=== PATIENT | male | born 1975 | race Caucasian/White ===

== ENCOUNTER 2023-09-07 17:04 | Emergency (ER) | payer BC ==
[~2023-09-07] VITALS: Ht 162.6 cm; Wt 66.7 kg
[2023-09-07 17:07] VITALS: BP 134/87; PULSE 77; RESP 18; TEMP 98.3; O2SAT 98
[2023-09-07 17:31] VITALS: O2SAT 99
[2023-09-07] MEDS ORDERED: metFORMIN 500 MG TAB PO SCH (18:10)
[2023-09-07] MEDS ORDERED: DIVALPROEX 500 MG TABEC PO ONE (18:10)
[2023-09-07] MEDS ORDERED: LORazepam 1 MG TAB PO ONE (18:10)
[2023-09-07 18:15] LABS: APPEARANCE,URINE CLEAR (CLEAR); BILIRUBIN,URINE NEGATIVE (NEGATIVE); BLOOD, URINE NEGATIVE (NEGATIVE); COLOR,URINE YELLOW (YELLOW); LEUKOCYTE ESTERASE ,URINE NEGATIVE (NEGATIVE); NITRITE, URINE NEGATIVE (NEGATIVE); PROTEIN,URINE NEGATIVE (NEGATIVE); UGLUCOSE NEGATIVE (NEGATIVE); UROBILINOGEN,URINE 0.2 EU/dL (0.2 - 1)
[2023-09-07 18:25] LABS: AMPHETAMINE, URINE NEGATIVE ng/ml (NEG <=1000); BARBITURATE, URINE NEGATIVE ng/ml (NEG <=200); BENZODIAZEPINE, URINE NEGATIVE ng/mL (NEG <=200); CANNABINOID, URINE NEGATIVE ng/mL (NEG <=50); COCAINE, URINE NEGATIVE ng/mL (NEG <=300); OPIATE, URINE NEGATIVE ng/mL (NEG <=2000); PHENCYCLIDINE SCREEN,URINE NEGATIVE ng/mL (NEG <=25)
[2023-09-07 18:32] LABS: BASOPHILS % (AUTO) 0.5 % (0.0-2.0); EOSINOPHILS # (AUTO) 0.1 K/uL (0-0.4); EOSINOPHILS % (AUTO) 1.8 % (0.0-4.0); HEMATOCRIT 41.9 % (36-52); LYMPHOCYTES # (AUTO) 2.3 K/uL (2.0-11.5); MEAN CORPUSCULAR HEMOGLOBIN 33 pg (27-31); MEAN CORPUSCULAR HGB CONC 34 g/dL (33-37); MEAN CORPUSCULAR VOLUME 97.7 fL (80-94); MONOCYTES # (AUTO) 0.6 K/uL (0.8-1.0); MONOCYTES % (AUTO) 9.2 % (1.7-9.3); NEUTROPHILS # (AUTO) 3.3 K/uL (1.8-7.7); NEUTROPHILS % (AUTO) 52.5 % (42.2-75.2); PLATELET COUNT (AUTO) 228 K/uL (140-450); RED BLOOD CELL COUNT(AUTO) 4.28 MIL/uL (4.20-6.10); RED CELL DISTRIBUTION WIDTH 17.9 % (11.6-13.7); WHITE BLOOD COUNT (AUTO) 6.4 K/uL (4.8-10.8)
[2023-09-07 18:44] LABS: ANION GAP 7.8 (8-16); CALCIUM 8.5 mg/dL (8.5-10.1); CARBON DIOXIDE 30.7 mmol/L (21-32); CREATININE 0.7 mg/dL (0.6-1.3); POTASSIUM 3.5 mmol/L (3.5-5.1)
[2023-09-07 18:49] LABS: SALICYLATE < 2.8 mg/dL (2.8-20.0)
[2023-09-07 18:50] LABS: ACETAMINOPHEN < 0.5 ug/ml (10-30); ALCOHOL, BLOOD < 3 mg/dL (<10)
[2023-09-07 19:46] VITALS: O2SAT 99
[2023-09-07] MEDS ORDERED: OLANZapine 5 MG ODT SL ONE (20:10)
[2023-09-07] MEDS ORDERED: OLANZapine 5 MG TAB ONE (22:06)
[2023-09-07] MEDS ORDERED: LORazepam 2 MG/ML VIAL IM ONE (22:40)
[2023-09-07] MEDS ORDERED: HALOPERIDOL IM 5 MG/ML VIAL IM ONE (22:40)
[2023-09-08] VITALS (8 sets, daily range): BP systolic 110; BP diastolic 61; PULSE 87; RESP 16; TEMP 98.3; O2SAT 99–100
== END 2023-09-08 18:33 ==
LOC: MED 17:04
DX: F23 Brief psychotic disorder (principal); Z20.822 Contact with and (suspected) exposure to COVID-19; R45.1 Restlessness and agitation
CPT/HCPCS: 36415; 70450; 80048; 80305; 81003; 82948; 85025; 87426; 96372; 99285; G0480; G0482; J1630; J2060

== ENCOUNTER 2024-05-16 21:16 | Emergency (ER) | payer BC ==
[~2024-05-16] VITALS: Ht 170.2 cm; Wt 68.0 kg
[2024-05-16 21:18] VITALS: BP 122/70; PULSE 84; RESP 18; TEMP 98; O2SAT 100
[2024-05-17 03:35] VITALS: BP 120/70; PULSE 80; RESP 16; TEMP 98; O2SAT 100
== END 2024-05-17 03:35 | disposition home or self-care (01) ==
LOC: MED 21:16
DX: F29 Unspecified psychosis not due to a substance or known physiological condition (principal)
CPT/HCPCS: 99283